=== PATIENT | female | born 1975 | race Hispanic/Latino ===

== ENCOUNTER 2018-11-24 21:14 | Emergency (ER) | payer BC ==
--- NOTE | 2018-11-24 22:10 | RAD ---
XR Chest Pa Lat STANDARD HISTORY: Cough COMPARISON: None FINDINGS: The heart size is normal. The lungs are well expanded without focal areas of consolidation, pneumothorax or pleural effusions. IMPRESSION: No radiographic evidence of acute cardiopulmonary process.
== END 2018-11-24 22:22 | disposition home or self-care (01) ==
LOC: SCSER 21:14
DX: J30.2 Other seasonal allergic rhinitis (principal); B35.4 Tinea corporis
CPT/HCPCS: 71046